=== PATIENT | female | born 1955 | race Caucasian/White ===

== ENCOUNTER → 2016-11-21 | Outpatient (CLI) | payer BC ==
--- NOTE | 2016-11-21 10:59 | RAD ---
HISTORY: Inflammatory polyarthropathy. Patient recently diagnosed with rheumatoid arthritis Study: Three-view right hand Comparison: Three-view left hand done today Findings: No fracture or dislocation is seen. No marginal erosions are seen. There is a degenerative or old po sttraumatic change involving the DIP joint of the right index finger dorsally. The soft tissues are slightly swollen overlying the MCP joints. IMPRESSION: Very mild soft tissue swelling overlying the MCP joints on the lateral view. No marginal erosions ar e seen. There is evidence of either degenerative change or posttraumatic change involving the DIP tori int of the right index finger. Reported By:
--- NOTE | 2016-11-21 11:06 | RAD ---
HISTORY: Inflammatory polyarthropathy. Patient has just been diagnosed with rheumatoid arthritis. Study: Three-view left hand Comparison: Three-view right hand also performed today Findings: There is very mild soft tissue swelling involving the MCP joints on the lateral view. Minimal erosiv e changes are present involving the medial head of the left 3rd metacarpal. These may represent aniyah y erosions of rheumatoid arthritis. No other bony erosions are seen. Articular spaces are well maint ained. No fracture or dislocation is seen. IMPRESSION: Soft tissue swelling overlying the dorsum of the MCP joints on the lateral view. Signs of very early erosive changes involving the medial cortex of the head of the left 3rd metacarp al. These findings may represent early erosions of rheumatoid arthritis. Reported By:
--- NOTE | 2016-11-21 11:56 | RAD ---
HISTORY: Inflammatory polyarthropathy. Patient recently diagnosed with rheumatoid arthritis Study: Three-view right wrist Comparison: Three-view left wrist also done today Findings: No evidence for acute cortical disruption or dislocation can be identified. The carpal bones appear well aligned. The visualized portions of the distal radius and ulna are unremarkable. No signific ant soft tissue abnormality can be identified. there is a persisting ossification center of the ulna r styloid. No evidence of marginal erosion is seen. IMPRESSION: 1. Negative exam. Reported By:
--- NOTE | 2016-11-21 11:59 | RAD ---
HISTORY: Inflammatory polyarthropathy. Patient recently diagnosed with rheumatoid arthritis Study: Three-view right wrist Comparison: Three-view left wrist also done today Findings: No evidence for acute cortical disruption or dislocation can be identified. The carpal bones appear well aligned. The visualized portions of the distal radius and ulna are unremarkable. No signific ant soft tissue abnormality can be identified. no bony erosions are seen. There is a persisting ossi fication center of the ulnar styloid. IMPRESSION: 1. Negative exam. Reported By:
--- NOTE | 2016-11-21 13:05 | RAD ---
HISTORY: Polyarthropathy, inflammatory, patient recently diagnosed with rheumatoid arthritis. Study: Three-view left foot Comparison: Three-view right foot also done today Findings: No fracture or dislocation is seen. There is no evidence of bony erosion or articular space loss. Po sterior calcaneal spurs are present at the level of the insertion of the Achilles tendon and the addi ntar fascia. Soft tissues unremarkable. IMPRESSION: Incidental heel spurs otherwise unremarkable three-view left foot. Reported By:
--- NOTE | 2016-11-21 13:14 | RAD ---
HISTORY: Inflammatory polyarthropathy. Patient recently diagnosed with rheumatoid arthritis Study: Three-view right foot Comparison: Three-view left foot also provided today Findings: No fracture or dislocation is seen. Articular spaces are well maintained. No marginal erosions are i dentified. There is an incidental spur present involving the posterior calcaneus at the level of the insertion of the plantar fascia. IMPRESSION: Incidental heel spur otherwise unremarkable right foot. Reported By:
== END ==
LOC: RAD 10:06
PROVIDERS: ATTEND Internal Medicine Rheumatology
DX: M06.4 Inflammatory polyarthropathy (principal); M79.89 Other specified soft tissue disorders; M77.32 Calcaneal spur, left foot; M77.31 Calcaneal spur, right foot
CPT/HCPCS: 73100; 73130; 73630

== ENCOUNTER → 2016-12-22 | Outpatient (CLI) | payer BC ==
[2016-12-22 12:26] LABS: BASOPHILS % (AUTO) 0.1 % (0.2-1.0); HEMATOCRIT 43.1 % (36.0-47.0); HEMOGLOBIN 14.7 g/dL (12.0-16.0); LYMPHOCYTES # (AUTO) 1.2 X10^3/uL (1.3-2.9); LYMPHOCYTES % (AUTO) 19.9 % (21.0-51.0); MEAN CORPUSCULAR HEMOGLOBIN 30.2 pg (27.0-34.0); MEAN CORPUSCULAR HGB CONC 34.1 g/dL (33.0-35.0); MEAN CORPUSCULAR VOLUME 88.6 fL (80.0-100.0); MEAN PLATELET VOLUME 7.9 fL (7.4-11.0); MONOCYTES # (AUTO) 0.4 x10^3/uL (0.3-0.8); MONOCYTES % (AUTO) 7.2 % (0.0-13.0); NEUTROPHILS # (AUTO) 4.2 x10^3/uL (2.2-4.8); NEUTROPHILS % (AUTO) 72.8 % (42.0-75.0); PLATELET COUNT 280 X10^3/uL (150.0-450.0); RED BLOOD COUNT 4.86 X10^6/uL (3.5-5.4); RED CELL DISTRIBUTION WIDTH 13.8 % (11.6-16.5); WHITE BLOOD COUNT 5.8 X10^3/uL (3.6-10.0)
[2016-12-22 12:27] LABS: ALBUMIN 4.3 g/dL (3.4-5.0); BILIRUBIN,DIRECT 0.09 mg/dL (0-0.2); C-REACTIVE PROTEIN 1.1 mg/L (0-3.0); CREATININE 1.09 mg/dL (0.55-1.02); TOTAL PROTEIN 7.5 g/dL (6.4-8.2)
== END ==
LOC: LAB 11:44
PROVIDERS: ATTEND Internal Medicine Rheumatology
DX: M06.4 Inflammatory polyarthropathy (principal); Z79.899 Other long term (current) drug therapy
CPT/HCPCS: 36415; 80076; 82565; 85025; 86140

== ENCOUNTER → 2017-08-29 | Outpatient (CLI) | payer BC ==
--- NOTE | 2017-08-30 10:55 | MG ---
HISTORY: SCREENING Comparison: 07/19/2016 FINDINGS: Bilateral CC and MLO projections of the right and left breast were obtained. Scattered fibroglandula r tissue is seen to be present. No significant architectural distortion, mass or clustered microcalc ifications can be observed to suggest malignancy. No skin thickening or nipple retraction is appreci ated. No pathological lymphadenopathy can be identified. Benign-appearing calcifications scattered throughout the right and left breasts are observed. IMPRESSION: NO RADIOGRAPHIC EVIDENCE OF MALIGNANCY. ACR CATEGORY: 2 - benign findings. FOLLOW-UP EXAM 1 YEAR. Diagnostic CAD was utilized and reviewed. * 0 (ZERO) - ASSESSMENT INCOMPLETE; ADDITIONAL IMAGING IS NEEDED. * 1/ (ONE) - NEGATIVE. * 2/II (TWO) - BENIGN FINDINGS. * 3/III (THREE) - PROBABLY BENIGN FINDING; SHORT INTERVAL FOLLOW-UP SUGGESTED. * 4/IV (FOUR) - SUSPICIOUS ABNORMALITY; BIOPSY SHOULD BE CONSIDERED. * 5/V - HIGHLY SUSPICIOUS OF MALIGNANCY; BIOPSY SHOULD BE PERFORMED. A NEGATIVE X-RAY REPORT SHOULD NOT DELAY BIOPSY IF A DOMINANT OR CLINICALLY SUSPICIOUS MASS IS PRESENT; 4 TO 8 PERCENT OF CANCERS ARE NOT IDENTIFIED BY X-RAY. A NEGA TIVE REPORT MAY REINFORCE THE CLINICAL IMPRESSION. ADENOSIS AND DENSE BREASTS MAY OBSCURE AN UNDERLY ING NEOPLASM. Reported By:
== END ==
LOC: RAD 13:07
PROVIDERS: ATTEND Internal Medicine
DX: Z12.31 Encounter for screening mammogram for malignant neoplasm of breast (principal)
CPT/HCPCS: 77067